=== PATIENT | female | born 1970 | race Caucasian/White ===

== ENCOUNTER 2016-11-23 17:58 | Observation (INO) | payer SELFPAY ==
[2016-11-23] MEDS ORDERED: NS 1,000 ML IV ONE (18:15)
[2016-11-23] MEDS ORDERED: NITROGLYCERINE 2 % OINTMENT PACK TOP ONE (18:15)
[2016-11-23] MEDS ORDERED: Enoxaparin 1 mg per kg per dose SQ ONE (18:15)
[2016-11-23] MEDS ORDERED: METOPROLOL TARTRATE 25 MG TAB PO ONE (18:15)
[2016-11-23] MEDS ORDERED: SODIUM CHLORIDE 0.9% 10 ML FLUSH FLUSH PRN (18:15)
[2016-11-23] MEDS ORDERED: ASPIRIN (CHEWABLE) 81 MG TAB PO ONE (18:15)
--- NOTE | 2016-11-23 18:15 | EDPRACDOC ---
- General Information Stated Complaint: SHOB Time Seen by Provider: 11/23/16 18:14 Home Medications: Home Medications Aspirin [Aspirin EC] 81 mg PO DAILY 11/23/16 Carvedilol [Coreg] 25 mg PO BID 11/23/16 Clonazepam 0.5 mg PO BID PRN 11/23/16 Furosemide [Lasix] 40 mg PO BID 11/23/16 Allergies/Adverse Reactions: Allergies Allergy/AdvReac Type Severity Reaction Status Date / Time acetaminophen Allergy Nausea/Vomi Verified 11/23/16 18:18 [From Darvocet-N] ting cyclobenzaprine Allergy Hives* Verified 11/23/16 18:18 [From Flexeril] propoxyphene Allergy Nausea/Vomi Verified 11/23/16 18:18 [From Darvocet-N] ting - History of Present Illness Chest Pain Location: Reports: Substernal, Left Chest Pain Radiation: Reports: None Symptoms Occur: Reports: Gradually Cardiac History of: Reports: Stress Test, Other (PACER FOR CHF) PE Risk Factors: Reports: None Medications within 24 Hours: Reports: None Prehospital Care: Reports: None Pain Status: Present Now Pain Description: Reports: None Pain Severity: Mild Pain Worsens With: Reports: Nothing Pain Improves With: Reports: Nitroglycerin Associated Signs and Symptoms: Reports: SOB ED Past Medical History - History Reviewed Yes Nurses notes reviewed and agree except as marked EDM Review of Systems - Review of Systems ROS Negative Except as Marked: Yes All systems reviewed and were negative except as marked - Physical Exam Constitutional: Alert (Awake), No apparent distress Oriented to: Time, Person, Place Last recorded Vital Signs: Oxygen Pulse Oxygen Saturation O2 Device Oxygen Flow Rate Fraction of Inspired Oxygen ( FIO2) - HEENT Head: Normal ( normocephalic) Eye Exam: Normal (PERRL, EOMI, Sclera white) Oropharynx: Normal (Pharynx:Moist without exudate,Gums-no swelling) Tympanic Membrane: Normal ENT EAC: Normal TMJ: Normal Nose: No Symptoms Reported (septum midline) Neck: Normal (FROM, trachea at midline) - Respiratory/Cardiovascular Respiratory: Normal - CTA (BBS clear to auscultation without adventitious sounds ) Cardiovascular: Normal (RRR without murmur, gallop or rub) - GI Auscultation: Normal (NABS) Palpation: Normal (Soft,No rebound or guarding, non distended) Tenderness: Non tender Schofield's Sign: Negative - Musculoskeletal Back: Normal (Non-Tender) Extremities: Normal (Normal tone, Pulses 2+ No cyanosis or edema, FROM) - Integumentary Skin: Normal, Warm, Dry Lymphatics: Normal (no adenopathy) - Neurologic Memory Impaired: Normal Motor Function: Normal (Normal tone, Pulses 2+ No cyanosis or edema, FROM) Cranial Nerve: Normal (CN II-X11 intact sensation, strength 5/5) Cerebellar: Normal Mood Description: Normal Perception: Normal - Action Patient received Aspirin within last 24 hours?: Yes ASA given in the ED: Yes Patient received Beta Gerry within last 24hrs: Yes - Results 11/23/16 19:00 11/23/16 19:00 - EKG EKG #1 [place]: Normal Rhythm: NSR Block: None Hypertrophy: None ST: Normal - Departure Yes I personally saw and evaluated the patient. Disposition: Admit IP To This Hospital Condition: Good Final Diagnosis: Angina Referrals: None,No Provider [Primary Care Provider] - One Week Decision to Admit Time: 19:30 ([place]) Decision to admit date: 11/23/16 Decision to admit: from ED
[2016-11-23] MEDS: ENOXAPARIN SODIUM SQ ONE ×4 (18:52→18:53)
--- NOTE | 2016-11-23 18:59 | DIRPT ---
CLINICAL DATA: Chest pain. Pacemaker firing. CHF and atrial fibrillation. EXAM: PORTABLE CHEST 1 VIEW COMPARISON: 06/19/2016 FINDINGS: Pacer with leads at right atrium and right ventricle. No lead discontinuity. Midline trachea. Patient rotated minimally left. Normal heart size and mediastinal contours. No pleural effusion or pneumothorax. Clear lungs. IMPRESSION: No acute cardiopulmonary disease. Electronically Signed By: Jony Michelle M.D. On: 11/23/2016 18:56
[2016-11-23 19:07] LABS: AUTOMATED BASOPHIL 1.2 % (0-2); AUTOMATED LYMPH 26.9 % (17-44); AUTOMATED NEUTROPHIL 61.9 % (45-76); MPV 7.1 fL (7.4-10.4)
[2016-11-23 19:17] LABS: BLOOD UREA NITROGEN 15 MG/DL (7-17); CALC CORRECTED 9.1 MG/DL (8.4-10.2); CALCIUM 8.8 MG/DL (8.4-10.2); CALCULATED OSMOLALITY 277 MOs/Kg (270-290); CHLORIDE 104 mEq/L (98-107); GLUCOSE 113 MG/DL (70-99); SODIUM LEVEL 143 mEq/L (137-146)
[2016-11-23 19:19] LABS: PARTIAL THROMB. TIME 25.5 SEC (22-35)
[2016-11-23] MEDS ORDERED: NITROGLYCERINE 0.4 MG TAB SL PRN (19:37)
--- NOTE | 2016-11-23 19:43 | HISTPHYS ---
- Chief Complaint chest pain - History of Present Illness PRIMARY CARE PROVIDER: None CARDIOLOGY: [facility] Patient normally goes to [facility] and sometimes to [facility] HPI: Patient is a 45-year-old woman with hypertension, pacemaker placement, who presents with acute chest pain. She has felt sick since Yany leslie, has been having shortness of breath, headache. She went to [place] emergency department and was told she had a pneumonia on chest x-ray, but that it was viral and she just needed to take ibuprofen. Regarding chest pain: Onset: Vesta leslie. Duration: intermittent. Location: left chest near pacemaker. Radiation: to left arm. Character: 07/03. Pressure, "like something sitting on her chest." Alleviated by: Nothing. Exacerbated by: exertion. Associated Symptoms: Shortness of breath. Diaphoresis. Palpitations. Treatments: none at home except usual medications. Regarding sickness and cold symptoms: Onset: Started 6 days ago but worse in last 3 days. Duration: intermittent. Character: cannot describe. Alleviated by: Nothing. Exacerbated by: Nothing. Associated Symptoms: Palpitations. Coughing non-productive. Mild wheezing. Shortness of breath. Sneezing. Rhinorrhea. Nausea and vomiting. Can't keep anything down. Headache. 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 Fever to 101 x 2 days. Chills. Diaphoresis. Increased leg swelling and thinks she gained weight. Treatments: none at home except usual medications. Uses oxygen 2.5 L at home intermittently. PMH: Pacemaker in [place], [place] 7 or 8 yrs ago in August. Cardiac catheterization: 1 or 2 yrs ago in November 2014 (approximately) in [place] Echocardiogram [address] Lewis's office. She thinks nothing had changed. [place] same year she had pacemaker. COPD Migraines Anxiety - Medical History Cardiac History: Reports: Atrial Fibrillation, Hypertension, Congestive Heart Failure (From stress test 10/09/2015: EF 47% Mild global hypokinesia. [place].), Heart Attack, Cardiac Catheterization ( 1 or 2 yrs ago in November 2014 (approximately) in [place]), Stress Test (10/09/2015: EF 47% Mild global hypokinesia. [place].), Hypercholesterolemia, Pacemaker (approx 2007 in [place]) Respiratory History: Reports: COPD, Emphysema Musculoskeletal History: Reports: Arthritis (and chronic pain) Systemic History: Reports: Cancer (cervical cancer, resolved.), Anemia Neurological History: Reports: Migraine Psychological History: Denies: Depression PMH: Pacemaker in [place], [place] 7 or 8 yrs ago in August. Cardiac catheterization: 1 or 2 yrs ago in November 2014 (approximately) in [place] Echocardiogram [address] Lewis's office. She thinks nothing had changed. [place] same year she had pacemaker. COPD Migraines Anxiety - Surgical History Reports: Cholecystectomy, Other (Pacemaker. Cervical cancer removed. Tubal ligation.) - Medictions/Allergies Allergies cyclobenzaprine [From Flexeril] Allergy (Verified 11/23/16 18:18) Hives* propoxyphene [From Darvocet-N] Allergy (Verified 11/23/16 18:18) Nausea/Vomiting Current Medication List: Reviewed Home Medications Aspirin [Aspirin EC] 81 mg PO DAILY 11/23/16 Carvedilol [Coreg] 25 mg PO BID 11/23/16 Clonazepam 0.5 mg PO BID PRN 11/23/16 Furosemide [Lasix] 40 mg PO BID 11/23/16 - Family History Reports: Cardiac Disorders (Mother- 48yo. MGF, PGF, PGM.), Blood Disorders (Mother: Blood clot.) - Social History Travel Outside of [place] in the Last 3 Months?: No Smoking Status: Heavy tobacco smoker (5 or more cigarettes/day or daily pipe/ cigar) (Smokes less than half ppd. Started 14 yo.) Social History: Denies: Alcohol Use, Substance Use Disorder - Review of Systems GENERAL: Fever to 101 x 2 days. Chills. Diaphoresis. Positive for fatigue/ malaise. HEENT: No ear pain or discharge. No nasal bleeding. No throat pain or swelling. No eye pain or eye redness. Sneezing. Rhinorrhea. RESPIRATORY: Shortness of breath, cough, wheezing. CARDIOVASCULAR: Chest pain. Palpitations. GI: Has nausea, vomiting. No abdominal pain, diarrhea, constipation, or bloody stool. NEUROLOGICAL: Headache. 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 INTEGUMENT: no rashes, itching, or lesions. LYMPHATIC SYSTEM: no lymph node swelling or pain. MUSCULOSKELETAL: Left arm pain otherwise no new pain or joint swelling. GENITOURINARY: No dysuria or hematuria. ENDOCRINE: No polyuria or polydipsia. HEME: No chronic anemia, bleeding. Positive for easy bruising. - Physical Exam Vital Signs: Initial Vitals Temperature 97.9 F 11/23/16 18:15 Pulse Rate 75 11/23/16 18:15 Respiratory Rate 20 11/23/16 18:15 Blood Pressure 152/87 11/23/16 18:15 Pulse Oxygen Saturation 94 11/23/16 18:15 Weight: 145.1 kg Height: 5 feet 11 inches BMI: 44.6 - Other Exam Other Exam Findings: GENERAL: Ill-appearing, obese, in acute distress. HEENT: Normocephalic, atraumatic; pupils equal and round. Nares patent, with rhinorrhea but without bleeding. No oropharyngeal lesions or erythema. Mucous membranes are dry. NECK: is supple, no masses, trachea midline. Large neck circumference. RESPIRATORY: Clear to auscultation bilaterally. Chest wall movements are symmetric. No use of accessory muscles to breathe. No rales, rhonchi. Scattered wheezing bilaterally. Decreased breath sounds bilaterally. CARDIOVASCULAR: Normal S1, S2. Minimal 2/6 systolic flow murmur. No rubs, or gallops. PMI non-displaced. Carotids: no carotid bruits. No bradycardia or tachycardia. DP pulses 2+ bilaterally. GI: soft, nontender, non-distended, normal active bowel sounds. No hepatosplenomegaly. INTEGUMENT: Clean, dry, and intact. No rashes. No lesions. MUSCULOSKELETAL: Moving all extremities. No cyanosis. No clubbing. Edema: 1+ lower extremity edema bilaterally. NEUROLOGICAL: Cranial nerves 2-12 grossly intact. Motor 5/5 throughout upper extremities and 3+/5 in lower extremities. Reflexes: 2+ bilaterally. Babinski: toes downgoing bilaterally. Intact Finger to nose. Sensory grossly intact to light touch. Intact rapid alternating movements bilaterally. No pronator drift. PSYCHIATRIC: Fully oriented. Normal and appropriate affect. LYMPHATIC: No cervical lymphadenopathy. No supraclavicular lymphadenopathy. - Lab Results Laboratory Results - last 24 hr 11/23/16 11/23/16 11/23/16 19:00 19:00 19:00 WBC 4.3 RBC 4.97 Hgb 12.9 Hct 38.3 MCV 77 L MCH 26.1 L MCHC 33.8 RDW 15.5 H Plt Count 219 MPV 7.1 L Neut % (Auto) 61.9 Lymph % (Auto) 26.9 Tyler % (Auto) 6.0 Eos % (Auto) 4.0 Baso % (Auto) 1.2 Absolute Neuts (auto) 2.62 Absolute Lymphs (auto) 1.12 PT 10.3 INR 1.0 APTT 25.5 Sodium 143 Potassium 3.5 Chloride 104 Carbon Dioxide 29 Anion Gap 14 BUN 15 Creatinine 0.90 Estimated GFR (MDRD) > 60 Glucose 113 H Calculated Osmolality 277 Calcium 8.8 Corrected Calcium 9.1 Total Bilirubin 0.4 AST 29 ALT 40 Alkaline Phosphatase 63 Troponin I < 0.01 [id number]-P-Wjdbqjhdwpr Pept 78 Total Protein 7.0 Albumin 3.7 - Diagnostic Findings EK bpm. Sinus rhythm with possible AV dissociation. Nonspecific T wave abnormality. T wave inversion in leads 2, 3, aVF, V2, V3, V4, V5, and V6. Reviewed EKG personally. Chest x-ray, viewed personally: EXAM: PORTABLE CHEST 1 VIEW COMPARISON: 06/19/2016 FINDINGS: Pacer with leads at right atrium and right ventricle. No lead discontinuity. Midline trachea. Patient rotated minimally left. Normal heart size and mediastinal contours. No pleural effusion or pneumothorax. Clear lungs. IMPRESSION: No acute cardiopulmonary disease. PREVIOUS TESTIN09/09/2014: Myocardial Imaging with SPECT Gated Left Ventricular Wall Motion Study FINDINGS: No fixed or reversible defects are identified. EF 59%. 10/09/2015: Myocardial Imaging with SPECT Gated Left Ventricular Wall Motion Study FINDINGS: EF 47% No evidence of prior infarction or pharmacologically induced ischemia. Mild global hypokinesia without geographic wall motion abnormality. - Assessment (1) Chest pain R07.9 - CHEST PAIN, UNSPECIFIED Acute Present on Admission: Yes Rule out myocardial infarction. Plan: Obtain cardiac enzymes x 3. Place patient on telemetry. Give patient oxygen, aspirin. Give nitroglycerin, and morphine as needed for chest pain. Give statin. Stress test has been ordered for the morning. Patient has been advised, if the stress test is negative, to follow up with the primary care provider for evaluation of other potential causes of the chest pain. (2) COPD exacerbation J44.1 - CHRONIC OBSTRUCTIVE PULMONARY DISEASE W (ACUTE) EXACERBATION Acute Present on Admission: Yes COPD exacerbation, moderate. Plan: Duonebs scheduled. PRN albuterol. Continuous oxygen support. Cultures. IV azithromycin and IV ceftriaxone. IV methylprednisolone. (3) Migraine G43.909 - MIGRAINE, UNSP, NOT INTRACTABLE, WITHOUT STATUS MIGRAINOSUS Acute Present on Admission: Yes Worsened with nitro. Plan: PRN pain medication. (4) Dyspnea R06.00 - DYSPNEA, UNSPECIFIED Acute Present on Admission: Yes Plan: O2 by [place]. Case Care Discussed with: Patient, Family, Nursing Staff Total Time: 70 min
[2016-11-23] MEDS ORDERED: POTASSIUM CHLORIDE 20 MEQ TAB PO ONE (20:00)
[2016-11-23] MEDS ORDERED: MORPHINE 2 MG/ML INJECTION IV ONE (20:26)
[2016-11-23] MEDS ORDERED: ONDANSETRON HCL 4 MG/2 ML VIAL IV ONE (20:27)
[2016-11-23] MEDS ORDERED: LISINOPRIL 5 MG TAB PO ONE (21:02)
[2016-11-23] MEDS ORDERED: TEMAZEPAM 15 MG CAP PO PRN (21:03)
[2016-11-23] MEDS ORDERED: PROMETHAZINE 25 MG/ML VIAL IV PRN (21:03)
[2016-11-23] MEDS ORDERED: SENNA CONCENTRATE TAB PO PRN (21:03)
[2016-11-23] MEDS ORDERED: GUAIFEN 100 MG-DEXTROMETH 10 MG PER 5 ML PO PRN (21:03)
[2016-11-23] MEDS ORDERED: BISACODYL 5 MG TAB PO PRN (21:03)
[2016-11-23] MEDS ORDERED: Aluminum;Magnesium;Simethicone 30 ML UDC PO PRN (21:03)
[2016-11-23] MEDS ORDERED: ACETAMINOPHEN 325 MG SUPP PR PRN (21:03)
[2016-11-23] MEDS ORDERED: ALBUTEROL 0.083% 3 ML NEB NEB PRN (21:06)
[2016-11-23] MEDS: CEFTRIAXONE 1 GM in D5W 100 ML IV SCH (21:51)
[2016-11-23] MEDS: CARVEDILOL 25 MG TABLET PO SCH (21:52)
[2016-11-23] MEDS: METHYLPREDNISOLONE 40 MG/1 ML VIAL IV SCH (21:52)
[2016-11-23] MEDS: ATORVASTATIN 40 MG TAB PO SCH (21:52)
[2016-11-23] MEDS: ACETAMINOPHEN 325 MG/TAB TABLET PO PRN (21:56)
[2016-11-23] MEDS ORDERED: Pharmacy Order Set Alert SCH (22:00)
[2016-11-23] MEDS ORDERED: METHYLPREDNISOLONE 125 MG/2 ML VIAL IV SCH (22:00)
[2016-11-23] MEDS ORDERED: Vaccine Screening Complete SCH (23:00)
[2016-11-23] MEDS: AZITHROMYCIN 500 MG in D5W 250 ML IV SCH (23:34)
[2016-11-23] MEDS: MORPHINE 2 MG/ML INJECTION IV PRN (23:35)
[2016-11-24] MEDS: Albuterol/Ipratropium Neb 3 ML NEB NEB SCH ×4 (00:56→19:40)
[2016-11-24 02:00] LABS: LEUKOCYTES/URINE NEG (NEGATIVE); NITRITE/URINE NEG (NEGATIVE); URINE OCCULT BLOOD NEG (NEG/TRACE); WBC/URINE 0-2 (0-5)
[2016-11-24] MEDS: ONDANSETRON HCL 4 MG/2 ML VIAL IV PRN (03:26)
[2016-11-24 04:04] VITALS: BMI 49.0
[2016-11-24] MEDS: MORPHINE 2 MG/ML INJECTION IV PRN ×6 (05:22→21:28)
[2016-11-24] MEDS: METHYLPREDNISOLONE 40 MG/1 ML VIAL IV SCH ×3 (05:22→21:29)
[2016-11-24 06:38] LABS: LDL (calc.) 105.6 MG/DL (<100); VLDL (calc.) 34.4 MG/DL (5-40)
[2016-11-24] MEDS ORDERED: FLU VACCINE (Afluria) 0.5 ML DOSE IM ONE (08:00)
--- NOTE | 2016-11-24 10:11 | GENMEDPROG ---
Chief Complaint: Chest pain Subjective Note: Still having some chest pain, as well as nausea for which she is receiving Phenergan. Notes Reviewed: Yes Events from last night noted and discussed with Clinical Staff Current Medication List: Reviewed Currently: Reports: Nausea and Vomiting, Chest Pain. Denies: Cough, Wheezing DVT Prophylaxis: Yes - Physical Examination Vital Signs and I&O: Last Vital Signs Temp 97.8 F 11/24/16 07:43 Pulse 66 11/24/16 07:43 Resp 18 11/24/16 07:43 BP 100/55 L 11/24/16 07:43 Pulse Ox 91 11/24/16 07:47 Oxygen Pulse Oxygen Saturation 91 O2 Device Room Air Oxygen Flow Rate Fraction of Inspired Oxygen ( FIO2) Intake & Output 11/22/16 11/23/16 11/24/16 11/25/16 06:59 06:59 06:59 06:59 Intake Total 1149 200 Output Total 1150 Balance -1 200 Patient's weight 159.392 kg General: Alert, Oriented x3, No acute distress, Well appearing, Well nourished, Other (Normal and appropriate affect) HEENT: EOMI (Sclera white) Neck: Normal Trachea alignment, Normal inspection Lymphatics: Normal (no adenopathy) Respiratory: Normal - CTA (BBS clear to auscultation without adventitious sounds ) Cardiovascular: Regular rate, No Gallops,Rubs/Murmurs GI: Normal bowel sounds, Soft, Non tender (non distended) Extremities/Musculoskeletal: Other (Normal Tone). negative: Edema, Cyanosis Skin: No rashes, No significant lesion Neurological: Cranial Nerves (II-XII intact) Psych/Mental Status: Normal Affect (Fully oriented, [place] and appropriate affect ) Lab/DI/Studies Reviewed: Laboratory Tests 11/24/16 11/24/16 01:00 05:45 Troponin I < 0.01 < 0.01 - Assessment (1) Chest pain Acute R07.9 - CHEST PAIN, UNSPECIFIED Comment/Plan: Rule out myocardial infarction. Plan: Obtain cardiac enzymes x 3. Place patient on telemetry. Give patient oxygen, aspirin. Give nitroglycerin, and morphine as needed for chest pain. Give statin. Stress test has been ordered for the morning. Patient has been advised, if the stress test is negative, to follow up with the primary care provider for evaluation of other potential causes of the chest pain. (2) Angina Acute I20.9 - ANGINA PECTORIS, UNSPECIFIED (3) COPD exacerbation Acute J44.1 - CHRONIC OBSTRUCTIVE PULMONARY DISEASE W (ACUTE) EXACERBATION Comment/Plan: COPD exacerbation, moderate. Plan: Duonebs scheduled. PRN albuterol. Continuous oxygen support. Cultures. IV azithromycin and IV ceftriaxone. IV methylprednisolone. (4) Dyspnea Acute R06.00 - DYSPNEA, UNSPECIFIED Comment/Plan: Plan: O2 by [place]. (5) Migraine Acute G43.909 - MIGRAINE, UNSP, NOT INTRACTABLE, WITHOUT STATUS MIGRAINOSUS Comment/Plan: Worsened with nitro. Plan: PRN pain medication.
--- NOTE | 2016-11-24 10:18 | DIRPT ---
CLINICAL DATA: Left lower extremity pain and swelling. History of DVT. EXAM: LEFT LOWER EXTREMITY VENOUS DUPLEX ULTRASOUND TECHNIQUE: Doppler venous assessment of the left lower extremity deep venous system was performed, including characterization of spectral flow, compressibility, and phasicity. COMPARISON: None. FINDINGS: There is complete compressibility of the left common femoral, femoral, and popliteal veins. Doppler analysis demonstrates respiratory phasicity and augmentation of flow upon calf compression IMPRESSION: No evidence of left lower extremity DVT. Electronically Signed By: Abel Hernandez M.D. On: 11/24/2016 10:15
--- NOTE | 2016-11-24 12:18 | CAPUEKG ---
[place], [place] Test Date: 2016-11-24 Pat Name: KEN COLON Department: Room: 433 Gender: Female [employer] Operator: GISELA : Requested By: Order Number: Reading MD: Tayo Chacon MD Measurements Intervals [place] Rate: 76 P: 17 DC: 166 QRS: 71 QRSD: 92 T: 54 QT: 416 QTc: 468 Interpretive Statements Electronic atrial pacemaker T wave abnormality, consider anterolateral ischemia Prolonged QT Abnormal ECG Electronically Signed On 11-24-16 12:17:09 EST by Tayo Chacon MD [id number]> [id number]
[2016-11-24] MEDS: ASPIRIN 325 MG TAB PO SCH (12:47)
[2016-11-24] MEDS: LISINOPRIL 5 MG TAB PO SCH (12:49)
[2016-11-24] MEDS: CARVEDILOL 25 MG TABLET PO SCH ×2 (12:49→21:27)
[2016-11-24] MEDS: FUROSEMIDE 40 MG TAB PO SCH ×2 (12:49→17:59)
[2016-11-24] MEDS: ENOXAPARIN 80 MG/0.8 ML PFS SQ SCH (17:59)
[2016-11-24] MEDS ORDERED: ENOXAPARIN 40 MG/0.4 ML PFS SQ SCH (18:00)
[2016-11-24] MEDS: CEFTRIAXONE 1 GM in D5W 100 ML IV SCH (21:27)
[2016-11-24] MEDS: BENZONATATE 100 MG PERLES PO PRN (21:28)
[2016-11-24] MEDS: ATORVASTATIN 40 MG TAB PO SCH (21:28)
[2016-11-24] MEDS: AZITHROMYCIN 500 MG in D5W 250 ML IV SCH (23:18)
[2016-11-25] MEDS: Albuterol/Ipratropium Neb 3 ML NEB NEB SCH ×3 (01:26→15:13)
[2016-11-25] MEDS: MORPHINE 2 MG/ML INJECTION IV PRN ×2 (05:53→10:45)
[2016-11-25] MEDS: METHYLPREDNISOLONE 40 MG/1 ML VIAL IV SCH ×2 (05:53→14:39)
[2016-11-25] MEDS: ONDANSETRON HCL 4 MG/2 ML VIAL IV PRN (08:16)
[2016-11-25] MEDS ORDERED: SODIUM CHLORIDE 0.9% 10 ML FLUSH FLUSH ONE (09:00)
[2016-11-25] MEDS ORDERED: REGADENOSON 0.4 MG/5 ML SYRINGE IV ONE (09:00)
[2016-11-25] MEDS ORDERED: SESTAMIBI 8 MCI V IV ONE (09:34)
[2016-11-25] MEDS: ASPIRIN 325 MG TAB PO SCH (10:41)
[2016-11-25] MEDS: FUROSEMIDE 40 MG TAB PO SCH ×2 (10:41→16:26)
[2016-11-25] MEDS: LISINOPRIL 5 MG TAB PO SCH (10:47)
[2016-11-25] MEDS: CARVEDILOL 25 MG TABLET PO SCH (10:48)
[2016-11-25 11:47] VITALS: TEMP 97.8
--- NOTE | 2016-11-25 12:52 | PCM.STRESS ---
REGADENOSON MYOCARDIAL PERFUSION STRESS TEST DATE OF PROCEDURE: 11/25/16 INDICATION: Chest pain and palpitation - history of cardiomyopathy trop < .01 x3; BNP 78 pg/ml RESTING DATA: HR 73 B/P 132/79 Chest clear Cor: Regular rhythm, frequent prematures, no S3 RESTING EKG: NSR with frequent premature ventricular contractions diffuse T- wave inversion PROTOCOL: Approx 8 mCi of technetium-99m pyrophosphate (Cardiolyte) was injected intravenously and tomograhic imaging performed at rest. An hour later, 0.4 mg of regadenoson was injected as an IV bolus, followed by an additional 25 mCi of Cardiolyte and tomographic imaging repeated. Heart rate [stayed stable at] 87 per minute. BP remained stable in range of 132/79 Patient tolerated well. No chest pain. STRESS EKG: Rhythm: Sinus with frequent PVCs ST-T changes: No change from baseline MYOCARDIAL PERFUSION IMAGING: Rotational display of raw projection data documents stable pt position during imaging,suggests cardiomegaly. . There is a high right hemidiaphragm and prominent hepatic uptake . Obese with Clear potential for breast attenuation artifact is suggested]. There is a small area of mild/mod decreased counts in the anteroapical segment, more prominent on rest than on stress images. No areas of stress-induced hyperperfusion are identified. Gated imaging suggested mild left ventricular dilatation with low normal ejection fraction, measured end systolic volume of 56 mL and an ejection fraction of 57% IMPRESSION: (1) Functional capacity is not assessed (2) mild left ventricular enlargement, with end-systolic volume of 56 ml and ejection fraction of 57 %. (3) mild breast attenuation artifact (3) No areas of vasodilator induced hypoperfusion are identified Negative pharmacologic perfusion stress test for potential ischemia.
[2016-11-25] MEDS: ACETAMINOPHEN 325 MG/TAB TABLET PO PRN (14:42)
[2016-11-25 14:47] VITALS: BP 113/59
--- NOTE | 2016-11-25 14:48 | PCM.DCS92 ---
- Final/Secondary Discharge Diagnosis (1) Chest pain Acute R07.9 - CHEST PAIN, UNSPECIFIED Present on Admission: Yes Comment: Rule out myocardial infarction. Plan: Obtain cardiac enzymes x 3. Place patient on telemetry. Give patient oxygen, aspirin. Give nitroglycerin, and morphine as needed for chest pain. Give statin. Stress test has been ordered for the morning. Patient has been advised, if the stress test is negative, to follow up with the primary care provider for evaluation of other potential causes of the chest pain. (2) Angina Acute I20.9 - ANGINA PECTORIS, UNSPECIFIED (3) COPD exacerbation Acute J44.1 - CHRONIC OBSTRUCTIVE PULMONARY DISEASE W (ACUTE) EXACERBATION Present on Admission: Yes Comment: COPD exacerbation, moderate. Plan: Duonebs scheduled. PRN albuterol. Continuous oxygen support. Cultures. IV azithromycin and IV ceftriaxone. IV methylprednisolone. (4) Dyspnea Acute R06.00 - DYSPNEA, UNSPECIFIED Present on Admission: Yes Comment: Plan: O2 by [place]. (5) Migraine Acute G43.909 - MIGRAINE, UNSP, NOT INTRACTABLE, WITHOUT STATUS MIGRAINOSUS Present on Admission: Yes Comment: Worsened with nitro. Plan: PRN pain medication. (6) Encounter for tobacco use cessation counseling Acute Z71.6 - TOBACCO ABUSE COUNSELING Discharge Disposition: Home Discharge Condition: Improved Cognitive Discharge Status: Unimpaired Fuctional Discharge Status: Independent Physician Follow up/Referrals: Denton Lewis MD [NonStaff] - One Week (@ [facility] for FU ) Discharge Home Medication List Aspirin [Aspirin EC] 81 mg PO DAILY 11/23/16 [History Confirmed 11/23/16] Carvedilol [Coreg] 25 mg PO BID 11/23/16 [History Confirmed 11/23/16] Clonazepam 0.5 mg PO BID PRN 11/23/16 [History Confirmed 11/23/16] Furosemide [Lasix] 40 mg PO BID 11/23/16 [History Confirmed 11/23/16] O2 Device: Room Air Diet at Discharge: As Tolerated, Low Salt Activity: As Tolerated, No Heavy Lifting (nothing over 30 lbs), No Driving ( while using pain medications) Call Office For: Worsening Symptoms, Fever over 100.5, Pain Uncontrolled By Meds Discontinue use of:: All Types of Tobacco - DC Summary Notes Hospital Course Note:: Discharge summary on patient named KEN COLON admitted to [facility] on 11/23/16 by Jey Flynn MD. Date of discharge is []. The patient was admitted under observation and serial cardiac enzymes and EKGs were obtained. The patient ruled out for myocardial infarction by serial enzymes and EKGs. The patient then underwent a stress test. The stress test showed no evidence of reversible ischemia. The patient is stable for discharge home. Patient encouraged to stop smoking. Less than 10 minute spent on smoking cessation counseling. Total Time: 45 min - Physical Exam Vital Signs: Last Vital Signs Temp 97.8 F 11/25/16 11:47 Pulse 78 11/25/16 12:21 Resp 18 11/25/16 11:47 BP 148/68 11/25/16 11:47 Pulse Ox 92 11/25/16 11:47 Oxygen Pulse Oxygen Saturation 92 O2 Device Nasal Cannula Oxygen Flow Rate 2 Fraction of Inspired Oxygen ( FIO2) Constitutional: Alert (Awake), No apparent distress Oriented to: Time, Person, Place - HEENT Head: Normal ( normocephalic) Eye: Normal (PERRL, EOMI, Sclera white) Oropharynx: Normal (Pharynx:Moist without exudate,Gums-no swelling) Tympanic Membrane: Normal ENT EAC: Normal TMJ: Normal Nose: No Symptoms Reported (septum midline) - Respiratory/Cardiovascular Respiratory: Normal - CTA (BBS clear to auscultation without adventitious sounds ) - GI Auscultation: Normal (NABS) Palpation: Normal (Soft,No rebound or guarding, non distended) Tenderness: Non tender Schofield's Sign: Negative - Musculoskeletal Back: Normal (Non-Tender) Extremities: Normal (Normal tone, Pulses 2+ No cyanosis or edema, FROM) - Integumentary Lymphatics: Normal (no adenopathy) - Neurologic Memory Impaired: Normal Cerebellar: Normal Mood Description: Normal Perception: Normal - Other Exam Other Exam Findings: stress test results: IMPRESSION: (1) Functional capacity is not assessed (2) mild left ventricular enlargement, with end-systolic volume of 56 ml and ejection fraction of 57 %. (3) mild breast attenuation artifact (3) No areas of vasodilator induced hypoperfusion are identified Negative pharmacologic perfusion stress test for potential ischemia.
[2016-11-25 15:03] VITALS: PULSE 79
[2016-11-25] MEDS: BENZONATATE 100 MG PERLES PO PRN (16:26)
[2016-11-25] MEDS: ENOXAPARIN 80 MG/0.8 ML PFS SQ SCH (16:54)
== END 2016-11-25 16:54 | disposition home or self-care (01) ==
LOC: ED 17:58 → PCU 19:36
PROVIDERS: ADMIT Internal Medicine; ATTEND Hospitalist
DX: I20.9 Angina pectoris, unspecified (principal); J44.1 Chronic obstructive pulmonary disease with (acute) exacerbation; I50.9 Heart failure, unspecified; F17.210 Nicotine dependence, cigarettes, uncomplicated; Z23 Encounter for immunization; G43.909 Migraine, unspecified, not intractable, without status migrainosus; Z71.6 Tobacco abuse counseling; I11.0 Hypertensive heart disease with heart failure; Z95.0 Presence of cardiac pacemaker; I25.2 Old myocardial infarction; E78.00 Pure hypercholesterolemia, unspecified; Z79.82 Long term (current) use of aspirin; Z79.899 Other long term (current) drug therapy
CPT/HCPCS: 36415; 71010; 78452; 80053; 80061; 81001; 82947; 82962; 83735; 83880; 84484; 85025; 85610; 85730; 87040; 87086; 90471; 90656; 93005; 93017; 93971; 94640; 96360; 96361; 96372; 99284; 99406; A4216; A9500; G0378; J0456; J0696; J1650; J2270; J2405; J2550; J2785; J2920; J3490; J7060; J7070; J7620; J2930